=== PATIENT | female | born 1980 | race Caucasian/White ===

== ENCOUNTER 2019-02-04 07:51 | Emergency (ER) | payer SELFPAY ==
[~2019-02-04] VITALS: Ht 149.9 cm; Wt 57.4 kg
[2019-02-04 07:52] VITALS: BP 123/59
--- NOTE | 2019-02-04 08:01 | NUR ---
Patient ambulated to bed 6 after providing a urine specimen. RN evaluating patient at bedside.
--- NOTE | 2019-02-04 08:14 | NUR ---
Dr. Munguia evaluating patient at bedside.
--- NOTE | 2019-02-04 08:15 | NUR ---
38 YO/F BIB C/O RIGHT LABIA PAIN X6 DAYS. PT REPORTS 8/10 PAIN THAT INCREASES WITH ACTIVITY. UPON ASSESSMENT PT NOTED WITH A TENDER/SWOLLEN LUMP RIGHT LABIA. PT SEEN BY DR AT CLINIC RX:BACTRIM, IBUPROFEN STARTED ON 02/02/19. MEDHX:DENIES
--- NOTE | 2019-02-04 08:46 | NUR ---
Elgin denton in ED - 02/04/19 at [address] Munguia and female administrative assistant front desk at bedside for pelvic exam.
--- NOTE | 2019-02-04 08:46 | NUR ---
Dr. Munguia examinating patient with female residential installer.
[2019-02-04] MEDS ORDERED: HYDROcodone/APAP 5/325 MG 1 TAB TAB PO ONE (08:50)
[2019-02-04 08:58] LABS: APPEARANCE,URINE CLEAR (CLEAR); BILIRUBIN,URINE NEGATIVE (NEGATIVE); BLOOD, URINE NEGATIVE (NEGATIVE); COLOR,URINE YELLOW (YELLOW); LEUKOCYTE ESTERASE ,URINE NEGATIVE (NEGATIVE); NITRITE, URINE NEGATIVE (NEGATIVE); PH,URINE 6.5 (5.0-9.0); UGLUCOSE NEGATIVE (NEGATIVE)
[2019-02-04 09:17] VITALS: BP 101/52
--- NOTE | 2019-02-04 09:18 | NUR ---
Patient discharged with v/s stable. Written and verbal after care instructions given and explained. Patient alert, oriented and verbalized understanding of instructions. Ambulatory with steady gait. All questions addressed prior to discharge. Patient advised to follow up with PMD. Rx of [place] given. Patient educated on indication of medication including possible reaction and side effects. Opportunity to ask questions provided and answered.
== END 2019-02-04 09:18 | disposition home or self-care (01) ==
LOC: MED 07:51
DX: N75.0 Cyst of Bartholin's gland (principal); Z79.2 Long term (current) use of antibiotics
CPT/HCPCS: 81002; 81003; 81025; 99283